=== PATIENT | female | born 1950 | race Caucasian/White ===

== ENCOUNTER → 2019-03-06 09:35 | Outpatient (CLI) | payer MEDICARE, OTHER, SELFPAY ==
--- NOTE | 2019-03-06 | DI.MRI.S_ITS ---
PROCEDURE: MR KNEE RT WO CON INDICATIONS: Unspecified internal derangement of right knee TECHNIQUE: Noncontrast sagittal PD fast spin echo and T2 fast spin echo with fat saturation, sagittal 3-D FLASH with fat saturation; coronal T1 spin echo and PD fast spin echo with fat saturation, and axial PD fast spin echo with fat saturation through the knee. COMPARISON: [facility] [place], CR, XR KNEE ARTHRITIC SERIES RT, 02/17/2019, 15:56. FINDINGS: Image quality: Excellent. Menisci: There is medial extrusion of the medial meniscus. There is fragmentation of the medial meniscal body and posterior horn, indicating complex tearing. Lateral meniscus demonstrates a discoid configuration, and is intact. Cruciate ligaments: The anterior and posterior cruciate ligaments appear intact. Medial structures: The medial collateral ligament appears intact. Visualized portions of the pes anserinus tendons appear normal. No abnormal bursal fluid. Lateral structures: The lateral collateral ligament demonstrates mild T2 signal elevation at its femoral origin. The long and short heads of the biceps femoris tendon appear intact. The popliteus tendon appears normal. There is moderate T2 signal elevation within the popliteus muscle. Iliotibial band appears normal. Anterior structures: The quadriceps and patellar tendons appear intact. Patellar alignment is normal. No femoral trochlear dysplasia or ventral trochlear prominence. No edema in the infrapatellar fat pad. Bones and cartilage: No bone marrow contusions or fractures. Moderate tricompartmental periarticular osteophyte formation. Moderate subchondral ill-defined T2 signal intensity within the weightbearing aspects of the medial femoral condyle and medial tibial plateau, new since the prior examination. Severe diffuse articular cartilage loss overlies the weightbearing aspects of the medial femoral condyle and medial tibial plateau. Mild diffuse articular cartilage loss overlies the medial and lateral patellar facets. Joint space: There is a moderate knee joint effusion. No Torres's cyst. Normal appearing synovial plicae are incidentally noted. IMPRESSION: 1. Medial extrusion and complex tear of the medial meniscus. 2. Degenerative marrow edema versus contusion within the medial femoral condyle and medial tibial plateau. 3. Tricompartmental osteoarthritis with associated articular cartilage loss. 4. Popliteus strain. 5. Knee joint effusion. 6. Partial-thickness tearing of the lateral collateral ligament. Dictated by: Dayo Munoz M.D. on 03/06/2019 at 9:55 Approved by: Dayo Munoz M.D. on 03/06/2019 at 10:01
== END ==
PROVIDERS: PCP Family Medicine Geriatric Medicine; Visit Provider Orthopaedic Surgery
DX: S83.231A Complex tear of medial meniscus, current injury, right knee, initial encounter (principal); M17.11 Unilateral primary osteoarthritis, right knee; M25.461 Effusion, right knee; S83.421A Sprain of lateral collateral ligament of right knee, initial encounter; S83.8X1A Sprain of other specified parts of right knee, initial encounter
CPT/HCPCS: 73721

== ENCOUNTER 2019-05-01 14:02 | Observation (INO) | payer MEDICARE, SELFPAY ==
[2019-04-16 08:46] VITALS: BMI 27.4
[2019-04-30] VITALS (15 sets, daily range): BP systolic 99–158; BP diastolic 55–85; PULSE 54–91; RESP 10–98; TEMP 35.8–37.1; O2SAT 95–100; BMI 27.4
--- NOTE | 2019-04-30 09:15 | DI.RAD.S_ITS ---
PROCEDURE: XR KNEE RT 1TO2V INDICATIONS: Right total knee arthroplasty TECHNIQUE: 2 view(s) of the knee acquired. COMPARISON: [facility], , KNEE 1-2 VIEWS RIGHT, 11/21/2010, 12:43. FINDINGS: Bones: Patient is status post knee joint arthroplasty. Hardware components are in expected positions. Visualized bony structures are intact. Soft tissues: Overlying postoperative changes are noted. IMPRESSION: Status post interval right total knee arthroplasty without acute hardware complication. Dictated by: Oni Nichols M.D. on 04/30/2019 at 13:19 Approved by: Oni Nichols M.D. on 04/30/2019 at 13:20
--- NOTE | 2019-04-30 09:46 | PM.PREOP ---
Pre-operative Note Interval Note History & Physical reviewed/Exam performed by Physician: Yes Changes to H&P: No
--- NOTE | 2019-04-30 09:47 | PM.OP.1 ---
Operative Date/Time/Diagnoses Date of procedure: 04/30/19 Time of procedure: 12:38 Pre-op diagnosis: Right knee osteoarthritis Post-op diagnosis: same Procedure & Clinicians Procedure: Right total knee arthroplasty Same procedure as scheduled: Yes Indications: The patient presents today for total knee arthroplasty after failure of conservative treatment. The nature of the procedure including the risks and benefits, alternatives, postoperative course and expected outcome were discussed and all questions answered. Consent was obtained. Operative site confirmed and marked. Surgeon: Aly Cortez Pear Picker: Erik Barry Anesthesia Type: Spinal, Peripheral nerve block and Local Operative Notes Findings: Osteoarthritis primarily affecting the medial compartment. Closure Type: primary Specimen(s): none sent Prosthetic devices, grafts, tissues, transplants, or devices: Hel[employer] Nephew Sadaney BCS: 6 femoral component, 3 tibial component, 10 mm BCS polyethylene tray and 29 x 7.5 mm round patella Applied: implant(s) Estimated Blood Loss (mL): 20 Blood products transfused: none Tourniquet time (min): 57 Procedure in detail: The patient was taken to the operative suite and placed under spinal anesthesia with an adductor nerve block. The patient was given prophylactic antibiotics prior to surgery. The patient was also given tranexamic acid, 1 g, just prior to surgery for postoperative hemostasis. The lateral knee was prepped and the joint injected with 20 mL of 1% Lidocaine with epinephrine. The knee was then prepped and draped in usual sterile fashion. The leg was exsanguinated with an Esmarch dressing and the tourniquet raised to 250 torr. A 15 cm anterior incision was made. Next a medial trivector arthrotomy was made. The extensor mechanism was marked to ensure accurate repair. Initial exposing dissection was carried out medially and laterally. The knee was then extended and the patellar thickness was measured and a cut made removing approximately 9 mm of bone. The patella was then sized and drilled. Some excess lateral bone was excised and the patellofemoral ligament released. The knee was then flexed and the intramedullary femoral guide irma placed. The distal femoral cut was made in 6 ? of valgus at the + 0 position. The femoral size was measured and the appropriate cutting block was then placed and the anterior, posterior and chamfer cuts made. The intramedullary tibial irma was then placed with the proximal cutting guide. The guide was set to remove approximately 10 mm from the less affected lateral side. The proximal tibial cut was then made with an oscillating saw. All meniscus and bony debris was then removed. Flexion extension gaps were checked. No specific balancing was required other than routine removal of osteophytes. The soft tissues were then injected with a combination of 20 mL of half percent Marcaine with epinephrine and 20 mL of Exparel. The trial components were then placed. The knee went into full extension and flexion beyond 120?. There was excellent medial- lateral balance throughout motion. Patellar tracking was excellent. The trial components were removed and the knee was cleansed with Pulsavac irrigation and dried. The final components were cemented in with high viscosity vacuum mixed bone cement with antibiotics. The knee was held in extension and the patellar clamp until the cement had adequately cured. The knee was irrigated and inspected for any further debris. The knee was then irrigated with dilute Betadine solution. The extensor mechanism was closed with 5 interrupted #1 Vicryl sutures in 90 degrees of flexion. The joint was then injected with a combination of 1 g of tranexamic acid and 20 mL of quarter percent Marcaine with epinephrine. The subcutaneous tissue was closed with 2-0 Vicryl. The skin was closed with arabella and surgical adhesive. An Aquacell dressing and Steven wrap were then applied. The patient tolerated the procedure well and was returned to recovery room in good condition. Complications: none Condition: stable Disposition: PACU [facility]
[2019-04-30] MEDS: LACTATED RINGERS 1,000 ML 42 ML IV ×2 (10:03→12:02)
[2019-04-30] MEDS: PREGABALIN 75 MG CAPSULE PO (10:25)
[2019-04-30] MEDS: ACETAMINOPHEN 325 MG TABLET 975 MG PO ×3 (10:25→22:36)
[2019-04-30] MEDS: CELECOXIB 200 MG CAPSULE PO (10:26)
[2019-04-30] MEDS: MIDAZOLAM 2 MG/2 ML VIAL IV (11:00)
[2019-04-30] MEDS: CEFAZOLIN 2 GM/100 ML FROZ.PIGGY IV ×2 (11:10→18:33)
--- NOTE | 2019-04-30 11:11 | SUR.PREOP ---
Block start time [1102] . Monitoring initiated and maintained throughout procedure. Oxygen and medications given per anesthesiologist instructions. Patient remained stable throughout procedure, no adverse reactions noted. Block end time [1107].
[2019-04-30] MEDS: fentaNYL 100 MCG/2 ML INJ 50 MCG IV (11:14)
[2019-04-30] MEDS: LIDOCAINE 1% W/EPI INJ 20 ML INJ (11:25)
[2019-04-30] MEDS: TRANEXAMIC ACID 1,000 MG VIAL 1000 MG INJ ×2 (11:27→11:55)
--- NOTE | 2019-04-30 11:44 | SUR.OPER ---
Supine on padded OR bed. Pillow under head, arms secured on padded armboards <90 degree abduction. Safety belt across torso. Non-operative leg secured with tape over blanket over lower leg. Operative leg secured in DeMayo/Zach positioner. Foam padded brace at thigh of operative leg.
[2019-04-30] MEDS: BUPIVACAINE 0.25% W/ EPI 30 ML VIAL 60 ML INJ (11:49)
[2019-04-30] MEDS: BUPIVACAINE LIPOSOME 266 MG/20 ML VIAL INJ (11:50)
[2019-04-30] MEDS: BUPIVACAINE 0.25% W/ EPI (PF) 20 ML, TRANEXAMIC ACID 1,000 MG, SODIUM CHLORIDE 0.9% 10 ML INJ (11:52)
[2019-04-30] MEDS: SODIUM CHLORIDE IRRIG SOLUTION 250 ML, POVIDONE-IODINE SPONGE STICKS 1 APPLIC IRR (12:26)
[2019-04-30] MEDS: LACTATED RINGERS 1,000 ML 125 ML IV (14:31)
--- NOTE | 2019-04-30 15:58 | PC.NURSE ---
Pt brought to the AC floor at approx. 1345. She is A & O x4 and denies pain, nausea and vomiting. She has been oriented to the room and provided water and coffee. Surgical site dressing to right knee is CDI.
--- NOTE | 2019-04-30 18:24 | PC.NURSE ---
Pt unable to void. pt felt discomfort on her bladder. bladder scan 540cc. in and out cath per protocol, she had 900cc out.
[2019-04-30] MEDS: OXYCODONE IR 5 MG TABLET PO (19:19)
[2019-04-30] MEDS: ONDANSETRON 4 MG ODT PO (20:49)
[2019-04-30] MEDS: ASPIRIN EC 81 MG TABLET PO (22:36)
[2019-05-01] VITALS (7 sets, daily range): BP systolic 129–178; BP diastolic 65–86; PULSE 70–76; RESP 16–18; TEMP 36.4–37.1; O2SAT 92–97
[2019-05-01] MEDS: LACTATED RINGERS 1,000 ML 125 ML IV ×2 (00:04→08:15)
[2019-05-01] MEDS: OXYCODONE IR 5 MG TABLET PO (00:20)
[2019-05-01] MEDS: CEFAZOLIN 2 GM/100 ML FROZ.PIGGY IV (02:36)
--- NOTE | 2019-05-01 03:42 | PC.NURSE ---
Pt. vomited large amt. of chunky food all over the side rails and on the floor. Pt. expressed feeling much better after vomited. Asked if she wants something for nausea but declined states felt better. Assisted pt. to transfer from bed to chair with 2 assist using a walker. Pt. expressed pain to her right knee, asked if she wants something for pain but declined stating she will wait and toughen it up for now. Asked instead for saltine crackers and hot chamomile tea to settle her stomach. Will provide ice packs for now.Pt. sitting in recliner for now until we get the bed made and floor cleaned.
[2019-05-01] MEDS: HYDROMORPHONE 0.5 MG INJ IV ×2 (04:06→08:14)
[2019-05-01] MEDS: ONDANSETRON 4 MG/2 ML INJ IV (07:03)
[2019-05-01 07:53] LABS: Hemoglobin 11.3 g/dL (12.0-16.0)
[2019-05-01] MEDS: ONDANSETRON 4 MG ODT PO (08:02)
--- NOTE | 2019-05-01 09:18 | PM.PNPO.1 ---
Subjective Date Patient Seen: 05/01/19 Time Patient Seen: 09:18 Interval history: Patient's pain has been moderate to severe. Patient was nauseous this morning and throughout once. Denies fever chills. She has not been up with physical therapy. Exam Vital Signs (past 8 hours): - 05/01/19 03:58 05/01/19 07:50 Temperature 98.0 F 97.5 F L Pulse Rate 70 73 Respiratory Rate 18 16 Blood Pressure 129/65 136/74 Pulse Oximetry 97 93 Fraction of Inspired Oxygen 21 Oxygen Delivery Method Room Air Oxygen Flow Rate 0 Narrative Exam Narrative: 68-year-old female resting comfortably in bed in no apparent distress. Right knee dressing is clean, dry and intact. Sensation is grossly intact right lower extremity. Motor functions intact distally. Right leg is warm and dry. Objective Labs Result Diagrams: 05/01/19 07:35 Labs: Laboratory Results - last 24 hr 05/01/19 07:35 Hgb 11.3 L Hct 34.0 L Assessment & Plan Post-op Postoperative Procedures Operation Date: 04/30/19 11:15 Actual Procedures Side Surgeon p Total Knee Arthroplasty Right Aly Cortez MD Postop day 1 status post right total knee arthroplasty. Work on pain control and nausea. Mobilize with physical therapy. Possible discharge home tomorrow. Quality VTE Deep Vein Thrombosis/Pulmonary Embolism Present on Admission: No
--- NOTE | 2019-05-01 09:20 | PT.IIE ---
Current Diagnoses Bilateral primary osteoarthritis of knee (04/30/19) Unspecified internal derangement of right knee (04/30/19) Surgery Performed Operation Date: 04/30/19 11:15 Actual Procedures p Total Knee Arthroplasty(Right) - Aly Cortez MD Surgical History (Last Updated 04/16/19 @ 09:16 by Loretta Mcpherson RN) Hx of arthroscopy of left knee (Acute ~10/2017) Hx of bilateral cataract extraction (Acute) Hx of tonsillectomy (Acute) Medical History (Last Updated 04/16/19 @ 09:16 by Loretta Mcpherson RN) Arthritis (Acute) Hx of vaginal delivery (Acute) Osteoarthritis (Acute) Thin skin (Acute) Physical Therapy Inpatient Evaluation/Re-Eval M1 PT/OT-IP Prior Functional Status Start: 04/30/19 16:54 Freq: NEEDED Status: Active Protocol: Document 05/01/19 09:20 AB (Rec: 05/01/19 13:33 AB [id number]) Medical Review Prior Functional Status Medical History Reviewed Yes Communication able to make needs known Mobility and Gait pt stated that she is independent with all mobilities and ambulation without AD indoors but occasionally uses a SPC; uses SPC for outdoor mobility; also stated that she has a R knee hinged brace that she has been using since February 2019 Social History Household Members spouse Living Arrangements House Number of Floors (Floors) Two Floors Number of Stairs To Enter/Railing? has a ramp to enter has 5 steps with bilateral rails to get to bedroom level Home Environment Standard Height Toilet Walk in Shower Built-In Shower Seat Home Equipment Front Wheel Walker Straight Cane Bedside Commode Hand Held Shower Grab Bars In Shower Additional Social History Comment pt's spouse works and will be going back to work on sun/ and pt will be by herself after that. M2 PT-IP Current Condition Start: 04/30/19 16:54 Freq: NEEDED Status: Active Protocol: Document 05/01/19 09:20 AB (Rec: 05/01/19 13:33 AB [id number]) Physical Therapy Current Condition Current Condition Evaluation Date 05/01/19 Treatment Diagnosis s/p R TKA; difficulty in walking Onset Date 04/30/19 Weight Bearing Status Weight Bearing Status Weight Bear as Tolerated M3 PT-IP Subjective Start: 04/30/19 16:54 Freq: NEEDED Status: Active Protocol: Document 05/01/19 09:20 AB (Rec: 05/01/19 13:33 AB [id number]) Subjective Physical Therapy Visit Type Type Initial Evaluation Visit Start Time 09:20 Visit Stop Time 10:00 Total Visit Minutes 40 Number of CPAS Visits 0 Physical Therapy Visit Comments Patient Comments pt agreeable to do PT Therapy Pain Assessment Pain When Pain Assessed At Rest Pain Present Pain Present Pain Reported Location Right Knee Intensity 5 Scale Used Numeric (1 - 10) Pain Management Techniques Apply Cold Re-positioning Timing of Activity with Medications M4 PT-IP Mobility and Gait Start: 04/30/19 16:54 Freq: NEEDED Status: Active Protocol: Document 05/01/19 09:20 AB (Rec: 05/01/19 13:33 AB [id number]) PT-Bed Mobility Assessment Supine to Sit Supine to Sit Standby Assistance Sit to Supine Sit to Supine Moderate Assistance Scooting Scooting to Edge of Bed Minimal Assistance PT-Transfer Assessment Sit to and From Stand Sit to and from Stand Moderate Assistance 1 Person Assistance Use of Upper Extremities Equipment Transfer Assistive Device Gait Belt Front Wheeled Walker Orthotic/Prosthetic Devices or Brace: No Transfers Transfer Destination Toilet Bedside Commode Transfer Technique pt ambulated using FWW Transfer Ability Level of Assist Moderate Assistance Use of Upper Extremities Comments Mobility Comments pt completed supine to sit SBA . pt was able to sit on EOB SBA. pt ambulated ~ 5 ft before sitting on chair using FWW mod A and cues for quad activation. upon sitting, pt wanted to use the toilet. positioned bedside commode next to pt and pt completed stand step pivot using FWW mod A and cues. pt required mod A to maintain standing using FWW for support and also assisted with brief management . pt completed sit to stand from the bedside commode mod A and cues and transferred to the chair using FWW mod A and cues. pt refused to stay up on the chair and want to go back to bed. pt completed stand step transfer using FWW mod A and cues. pt completed sit to supine mod A for LE elevation to the bed. positioned pt on the bed. call light and table placed within reach. Gait Assessment Gait Gait Assistance Required: Moderate Assistance Distance (Feet) 5 Able to Maintain Weight Bearing Status Yes During Gait Assistive Devices Assistive Device Gait Belt Front Wheeled Walker Orthotic/Prosthetic Devices or Brace: No Gait Deviations General Gait Pattern Antalgic Decreased Stride Length Decreased Feet Clearance Step-to Gait Factors Limiting Gait Function Factors Limiting Gait Function Decreased Activity Tolerance Decreased Sensation Decreased Strength Limited Range of Motion Pain Poor Balance Poor Safety Awareness Comments Gait Comments pt presents with unsteady antalgic gait and requires cues for quad activation and assistance to stabilize R knee . PT-Balance Assessment Sitting Balance and Reactions Static Sitting Balance Ability Good Dynamic Sitting Balance Ability Good Standing Balance and Reactions Static Standing Balance Ability Fair Dynamic Standing Balance Ability Poor Device Used FWW M5 PT-IP Objective Assessments Start: 04/30/19 16:54 Freq: NEEDED Status: Active Protocol: Document 05/01/19 09:20 AB (Rec: 05/01/19 13:33 AB [id number]) Orientation Orientation/Cognition Level of Alertness Alert Orientation Name Place Situation Language Function Ability Hard of Hearing Safety Awareness Decreased Safety Awareness Memory Description Short Term Impaired Gross Range of Motion Upper Extremity ROM Assessment Within Functional Limits Lower Extremity ROM Assessment Right Impaired Impairments R knee flexion ~ 60 deg R knee extension: ~ 30 deg lacking to 0 Strength Lower Extremity Strength Assessment Right Impaired Hip 3+/5 Knee 3-/5 Ankle 2-/5 Comments Strength Comments pt unable to complete R ankle DF; stated that there is still some numbness Coordination Assessment Gross Coordination Gross Coordination WNL Sensation Assessment Sensation Gross Sensation Right LE Impaired Sensation Description Numbness Comments Sensation Comments c/o slight R foot numbness but able to decipher location of light touch Muscle Tone Muscle Tone WNL Yes M6 PT-IP Treatment Start: 04/30/19 16:54 Freq: NEEDED Status: Active Protocol: Document 05/01/19 09:20 AB (Rec: 05/01/19 13:33 AB [id number]) Physical Therapy Treatment Exercises Exercises Quad Sets Heel Slides Education Education Provided Precautions Weight Bearing Status Post-Op Packet Safety M7 PT-IP Assessment and Plan Start: 04/30/19 16:54 Freq: NEEDED Status: Active Protocol: Document 05/01/19 09:20 AB (Rec: 05/01/19 13:33 AB [id number]) PT Summary Assessment and Plan Potential Rehabilitation Potential Good Status of Condition at Evaluation Evolving Summary Impairments Pain ROM Strength Balance Coordination Sensation Tone Cognition Bed Mobility Transfers Gait Activity Tolerance Assessment Summary pt requiring mod A with mobility and requires assist to stabilize R knee. pt is not able to tolerate much activity with c/o R knee pain. d/c plan depending on progress and if spouse will be able to assist pt at home. pt may require SNF rehab at this time. Goals Bed Mobility Goal Standby Assistance Transfer Goal Standby Assistance Front Wheeled Walker Gait Goal Standby Assistance Front Wheel Walker Gait Distance 150 Other Goals up/down 5 steps B rails SBA Days to Meet Goals 5 Frequency of Treatment Frequency Of Treatment Twice a Day Treatment Plan Physical Therapy Treatment Plan Bed Mobility Training Transfer Training Gait Training Therapeutic Exercise Balance Retraining Post Op Education Discharge Planning Hot or Cold Pack Neuromuscular Re-ed Coordination Retraining Manual Therapy Other Recommendations and Next Treatment ambulation, caregiver training Focus . stair climbing Recommendations To Nursing Amount of Assist Needed 1 Person Assist Discharge Recommendations PT Discharge Recommendations Home with Assistance SNF Rehab Outpatient PT Other Discharge Recommendations depending on progress: SNF vs home with assist and outpt PT
[2019-05-01] MEDS: MAG HYDROX/ALUM/SIMETH 30 ML UDC PO (11:33)
--- NOTE | 2019-05-01 13:16 | CM.IDA ---
Initial DCP assessment Note: Pt is a 68 yo female, resident of [place]. Pt under obs POD#1 from Right knee surgery w/ Dr Cortez. PCP: [facility] Mariee Payer: Medicare Reviewed chart. Attempted to meet w/pt for initial assessment, although pt not feeling well after episodes of N/V this morning. Ortho PA expecting pt will be ready for DC home tomorrow. Pt has planned to return [place] to [place] w/friends and family to assist, PT pending today. No PT note yet, recommendation pending initial PT eval. Following closely for coordination of safe DCP, likely return home as expected. DAVIE Sullivan Discharge Planning/Care Management CM Discharge Assessment Start: 05/01/19 13:13 Freq: Status: Active Protocol: Document 05/01/19 13:14 WILI (Rec: 05/01/19 13:16 WILI [id number]) Discharge Planning Assessment Assigned Tool Grinder Operator Surface DAVIE Iraheta DPOA/Assigned Designee Name Camron Iglesias, spouse Contact Information [phone] Advance Directives? No Advance Directives on File No History Provided By Patient Medical Record Prior Living Arrangements House Household Members spouse Type of transporation used prior to Drives own vehicle admit Independent with ADL's Yes Is patient alert and oriented? Yes Barriers to Discharge No Discharge Plan Home Transportation Arrangement Family, [place] Referrals Initiated None needed Whiteboard Updated in Patient Room with Yes name and ext. # of Tool Grinder Operator Surface Review Status In Process
[2019-05-01] MEDS: ACETAMINOPHEN 325 MG TABLET 975 MG PO ×2 (13:19→18:26)
--- NOTE | 2019-05-01 14:52 | PT.IPTN ---
Current Diagnoses Bilateral primary osteoarthritis of knee (04/30/19) Unspecified internal derangement of right knee (04/30/19) Surgery Performed Operation Date: 04/30/19 11:15 Actual Procedures p Total Knee Arthroplasty(Right) - Aly Cortez MD Physical Therapy Treatment Note M2 PT-IP Current Condition Start: 04/30/19 16:54 Freq: NEEDED Status: Active Protocol: Document 05/01/19 09:20 AB (Rec: 05/01/19 13:33 AB [id number]) Physical Therapy Current Condition Current Condition Evaluation Date 05/01/19 Treatment Diagnosis s/p R TKA; difficulty in walking Onset Date 04/30/19 Weight Bearing Status Weight Bearing Status Weight Bear as Tolerated M3 PT-IP Subjective Start: 04/30/19 16:54 Freq: NEEDED Status: Active Protocol: Document 05/01/19 14:52 AB (Rec: 05/01/19 16:19 AB [id number]) Subjective Physical Therapy Visit Type Type Treatment Note Visit Start Time 14:52 Visit Stop Time 15:31 Total Visit Minutes 39 Number of RECYCLING SPECIALIST Visits 0 Physical Therapy Visit Comments Patient Comments pt agreeable to do PT. spouse present Therapy Pain Assessment Pain When Pain Assessed At Rest Pain Present Pain Present Pain Reported Location Right Knee Intensity 4 Scale Used Numeric (1 - 10) Pain Management Techniques Apply Cold Re-positioning Timing of Activity with Medications M4 PT-IP Mobility and Gait Start: 04/30/19 16:54 Freq: NEEDED Status: Active Protocol: Document 05/01/19 14:52 AB (Rec: 05/01/19 16:19 AB [id number]) PT-Bed Mobility Assessment Supine to Sit Supine to Sit Minimal Assistance Sit to Supine Sit to Supine 1 Person Assistance Scooting Scooting to Edge of Bed Standby Assistance PT-Transfer Assessment Sit to and From Stand Sit to and from Stand Minimal Assistance 1 Person Assistance Use of Upper Extremities Equipment Transfer Assistive Device Gait Belt Front Wheeled Walker Orthotic/Prosthetic Devices or Brace: No Comments Mobility Comments caregiver training conducted. educated spouse on how to use safety belt and how to assist pt. pt's spouse was able to assist pt with supine to sit. pt completed sit to stand an spouse assisted. pt agreed to ambulate and completed ~ 40 ft using FWW min A and spouse was able to also assist pt safely. pt requires cues to activate R quads. pt ambulated towards the bed and rested. pt completed sit to stand from the bed min A and cues. standing balance/ tolerance activity conducted using FWW. pt was able to complete one leg stance on RLE with use of FWW for support CGA and was able to hold for ~ 5 sec. pt completed again with holding on to only L side of the FWW and able to hold again for ~ 5 sed. pt refused to sit up on the chair and wants to go back to bed. pt completed sit to supine. showed spouse on how to assist pt and spouse was able to complete. Gait Assessment Gait Gait Assistance Required: Minimum Assistance Distance (Feet) 40 Able to Maintain Weight Bearing Status Yes During Gait Assistive Devices Assistive Device Gait Belt Front Wheeled Walker Orthotic/Prosthetic Devices or Brace: No Gait Deviations General Gait Pattern Antalgic Decreased Stride Length Decreased Feet Clearance Step-to Gait Factors Limiting Gait Function Factors Limiting Gait Function Decreased Activity Tolerance Decreased Strength Pain Poor Balance Poor Safety Awareness Comments Gait Comments pt requiring min A using FWW for ambulation ~ 40 ft. spouse was able to assist pt. pt requires cues to increase RLE elevation. pt continues to have R foot drop. M5 PT-IP Objective Assessments Start: 04/30/19 16:54 Freq: NEEDED Status: Active Protocol: Document 05/01/19 09:20 AB (Rec: 05/01/19 13:33 AB [id number]) Orientation Orientation/Cognition Level of Alertness Alert Orientation Name Place Situation Language Function Ability Hard of Hearing Safety Awareness Decreased Safety Awareness Memory Description Short Term Impaired Gross Range of Motion Upper Extremity ROM Assessment Within Functional Limits Lower Extremity ROM Assessment Right Impaired Impairments R knee flexion ~ 60 deg R knee extension: ~ 30 deg lacking to 0 Strength Lower Extremity Strength Assessment Right Impaired Hip 3+/5 Knee 3-/5 Ankle 2-/5 Comments Strength Comments pt unable to complete R ankle DF; stated that there is still some numbness Coordination Assessment Gross Coordination Gross Coordination WNL Sensation Assessment Sensation Gross Sensation Right LE Impaired Sensation Description Numbness Comments Sensation Comments c/o slight R foot numbness but able to decipher location of light touch Muscle Tone Muscle Tone WNL Yes M6 PT-IP Treatment Start: 04/30/19 16:54 Freq: NEEDED Status: Active Protocol: Document 05/01/19 14:52 AB (Rec: 05/01/19 16:19 AB [id number]) Physical Therapy Treatment Exercises Exercises Heel Slides Education Education Provided Safety M7 PT-IP Assessment and Plan Start: 04/30/19 16:54 Freq: NEEDED Status: Active Protocol: Document 05/01/19 14:52 AB (Rec: 05/01/19 16:19 AB [id number]) PT Summary Assessment and Plan Potential Rehabilitation Potential Good Summary Impairments Pain ROM Strength Balance Sensation Bed Mobility Transfers Gait Activity Tolerance Progress Towards Goals Slow Progress due to Pain Slow Progress due to Activity Tolerance Assessment Summary caregiver training initiated and further training will be conducted tomorrow. pt wants to go home tomorrow but will continue to work on goals for safe d/c. pt has ~ 5 steps to get into the bedroom level with B rails and is not appropriate for stair training today. will attempt tomorrow . Goals Bed Mobility Goal Standby Assistance Transfer Goal Standby Assistance Front Wheeled Walker Gait Goal Standby Assistance Front Wheel Walker Gait Distance 150 Other Goals up/down 5 steps B rails SBA Days to Meet Goals 5 Frequency of Treatment Frequency Of Treatment Twice a Day Treatment Plan Physical Therapy Treatment Plan Bed Mobility Training Transfer Training Gait Training Therapeutic Exercise Balance Retraining Post Op Education Discharge Planning Hot or Cold Pack Neuromuscular Re-ed Coordination Retraining Manual Therapy Other Recommendations and Next Treatment ambulation, caregiver training Focus . stair climbing Recommendations To Nursing Amount of Assist Needed 1 Person Assist Discharge Recommendations PT Discharge Recommendations Home with Assistance Outpatient PT
[2019-05-01] MEDS: ACETAMINOPHEN 325 MG TABLET 650 MG PO (23:18)
--- NOTE | 2019-05-01 23:52 | PC.NURSE ---
Addendum entered by Elizabeth Rajput R.N. 05/02/19 04:02: Patient up to BSC earlier and nearly lost her balance during turning to sit down on commode. Reinforced importance of calling for assistance and patient verbalizes understanding. At that time stated pain was 5/10 but declined pain med. Now states pain is 7/10 and requesting Tylenol but too early to give Tylenol so decided to take Oxycodone even though she has hx of nausea with narcotics. Did offer Zofran ODT along with Oxycodone as prevention but declines. Original Note: Patient is alert and oriented with very flat affect. Breath sounds CTA with RA sat of 93%. HRR with elevated BP of 151/79 consistent with previous readings. Denies nausea. BT present and has passed some flatus. Denies dysuria, frequency or urgency. Is getting up with walker and SBA to BSC; needs help to get leg in/out of bed. Dressing to right knee is CDI. At shift change was complaining of 6/10 pain and was medicated with Tylenol; declines offer of ice pack. SCD's on at shift change and now refusing them stating they don't allow her to sleep; reminded of need for DVT prevention but still refuses so reminded to ankle wave. CMS is intact. Fall risk score is moderate; bed alarm is activated. Patient reminded to call for assistance when getting out of bed as RN found patient getting up by herself upon entering room to do assessment. Spouse roomming in.
[2019-05-02 03:48] VITALS: BMI 27.4
[2019-05-02] MEDS: OXYCODONE IR 5 MG TABLET PO (04:00)
[2019-05-02 06:13] VITALS: BP 143/74; PULSE 79; RESP 16; TEMP 36.6; O2SAT 92
[2019-05-02 07:30] VITALS: BP 152/59; PULSE 88; RESP 16; TEMP 36.9; O2SAT 96
[2019-05-02] MEDS: ASPIRIN EC 81 MG TABLET PO (08:45)
[2019-05-02] MEDS: MELOXICAM 7.5 MG TABLET 15 MG PO (08:46)
--- NOTE | 2019-05-02 09:04 | PM.DS.1 ---
History of Present Illness Date Patient Seen: 05/02/19 Time Patient Seen: 09:05 Chief complaint: [id number] Right TKA Narrative: Hospital day 3, postop day 2 following right total knee arthroplasty by Dr. Cortez. Patient stable at this time. She has progressed with physical therapy. Patient feels like she is ready to go home. She does have physical therapy scheduled at [facility]. She is thus with path patient and has prescription at home for oxycodone. Discharge Providers Date of admission: 04/30/19 09:34 Discharge Date: 05/02/19 Primary care physician: Bismark Mariee MD Consults: 04/30/19 14:12 Consult to Discharge Planning Routine Comment: Consult to Physical Therapy Evaluate & Treat Comment: Physician Instructions: postop TKA protocol Consult to Respiratory Therapy Evaluate & Treat Comment: Physician Instructions: Evaluate and treat Discharge provider: Nile Barrientos PA-C Summary Discharge Diagnosis: Status post right total knee arthroplasty Hospital Course: Patient brought to hospital on 04/30/2019 for above-noted surgery. She remained stable postoperatively. Dr. Terrell for improved with physical therapy. Ready for discharge home on postop day 2. Status at Discharge Cognitive/behavioral status at discharge: oriented Functional status at discharge: uses cane/walker Overall status at discharge: patient is progressing back to baseline Time Spent with Patient Less than 30 minutes Exam Vital Signs (past 8 hours): - 05/02/19 06:13 05/02/19 07:30 Temperature 98 F 98.5 F Pulse Rate 79 88 Respiratory Rate 16 16 Blood Pressure 143/74 H 152/59 H Pulse Oximetry 92 96 Fraction of Inspired Oxygen 21 Oxygen Delivery Method Room Air Oxygen Flow Rate 0 Narrative Exam Narrative: Alert, oriented no acute distress sitting in chair. Legs. Steven wrap an Aquacel dressing to right knee are dry without drainage or inflammation. Mild swelling of knee to lower leg. Good pulses distally. No calf tenderness. Objective Labs Result Diagrams: 05/01/19 07:35 Discharge Plan Discharge Plan Patient Disposition: Home Discharge comment: Discharge to home today after cleared by PT. She is a [facility] patient and has prescription at home for oxycodone. Will give her prescription for meloxicam 15 mg. PT scheduled at [facility]. Take aspirin 81 mg 1 b.i.d. times 30 days postop. Discharge Med Rec/Prescriptions Prescriptions: New acetaminophen 325 mg Tablet 650 mg PO Q6H PRN (Reason: Pain, Moderate (4-6)) Qty: 30 RF: 0 aspirin 81 mg Tablet,Delayed Release (Dr/Ec) 81 mg PO BID Qty: 60 RF: 0 meloxicam 15 mg tablet 15 mg PO DAILY Qty: 20 RF: 0 Continued acetaminophen [Tylenol Extra Strength] 500 mg Tablet 1,000 mg PO Q5H PRN (Reason: Pain) RF: 0 doxylamine succinate 25 mg Tablet 25 mg PO BEDTIME RF: 0 Discontinued aspirin 325 mg Tablet 325 mg PO DAILY PRN (Reason: Pain) RF: 0 Follow up/Referrals: Bismark Mariee MD [Primary Care Provider] - Aly Cortez MD [Physician] - Provider Discharge Instructions Diet: Diet as Tolerated Activity: Ambulate as tolerated. Do range of motion of right knee as much as possible. Use walker as needed. Elevate the leg for swelling. Skin/Wound/Dressing Care Report to your healthcare provider any signs of infection, such as:: chills, fever, night sweats, increased pain, unusual drainage and unusual redness Dressing: Keep Aquacel dressing in place until postop visit. May remove Steven wrap. Visit Report/Discharge Packet Instructions: DI for Knee Replacement, How to Prevent Falls, DI for Postoperative Pain Visit Report Forms: Stroke Signs & Symptoms Discharge Data Primary Care Provider: Bismark Mariee Attending Provider: Aly Cortez Admit Date/Time: 04/30/19 09:34 Quality VTE Deep Vein Thrombosis/Pulmonary Embolism Present on Admission: No
--- NOTE | 2019-05-02 09:08 | PT.IPTN ---
Current Diagnoses Bilateral primary osteoarthritis of knee (05/01/19) Unspecified internal derangement of right knee (05/01/19) Surgery Performed Operation Date: 04/30/19 11:15 Actual Procedures p Total Knee Arthroplasty(Right) - Aly Cortez MD Physical Therapy Treatment Note M2 PT-IP Current Condition Start: 04/30/19 16:54 Freq: NEEDED Status: Discharge Protocol: Document 05/01/19 09:20 AB (Rec: 05/01/19 13:33 AB [id number]) Physical Therapy Current Condition Current Condition Evaluation Date 05/01/19 Treatment Diagnosis s/p R TKA; difficulty in walking Onset Date 04/30/19 Weight Bearing Status Weight Bearing Status Weight Bear as Tolerated M3 PT-IP Subjective Start: 04/30/19 16:54 Freq: NEEDED Status: Discharge Protocol: Document 05/02/19 09:08 AB (Rec: 05/02/19 11:53 AB [id number]) Subjective Physical Therapy Visit Type Type Treatment Note Visit Start Time 09:08 Visit Stop Time 09:32 Total Visit Minutes 24 Number of RESERVATION AGENT Visits 0 Physical Therapy Visit Comments Patient Comments pt agreeable to do PT Therapy Pain Assessment Pain When Pain Assessed At Rest Location Right Knee Intensity 4 Scale Used Numeric (1 - 10) Pain Management Techniques Apply Cold Re-positioning Timing of Activity with Medications M4 PT-IP Mobility and Gait Start: 04/30/19 16:54 Freq: NEEDED Status: Discharge Protocol: Document 05/02/19 09:08 AB (Rec: 05/02/19 11:53 AB [id number]) PT-Transfer Assessment Sit to and From Stand Sit to and from Stand Contact Guard Assistance Equipment Transfer Assistive Device Gait Belt Front Wheeled Walker Orthotic/Prosthetic Devices or Brace: No Gait Assessment Gait Gait Assistance Required: Contact Guard Assist Distance (Feet) 150 Able to Maintain Weight Bearing Status Yes During Gait Assistive Devices Assistive Device Gait Belt Orthotic/Prosthetic Devices or Brace: No Gait Deviations General Gait Pattern Antalgic Decreased Stride Length Decreased Feet Clearance Factors Limiting Gait Function Factors Limiting Gait Function Decreased Activity Tolerance Decreased Strength Pain Poor Balance Comments Gait Comments caregiver training conducted. spouse was able to assist pt with ambulation. pt now able to DF R foot and clear the floor better compared to yesterday Stair Climbing Assessment Evaluation Level of Assist On Stairs Contact Guard Assistance Minimal Assistance Devices Stair Climbing Assistive Devices Right Railing Technique/Endurance Stair Climbing Direction Ascend and Descend Stair Climbing Technique Step to Step Number of Steps Climbed 3 Comments Stair Climbing Comments spouse was able to assist pt safely with stair climbing M5 PT-IP Objective Assessments Start: 04/30/19 16:54 Freq: NEEDED Status: Discharge Protocol: Document 05/01/19 09:20 AB (Rec: 05/01/19 13:33 AB [id number]) Orientation Orientation/Cognition Level of Alertness Alert Orientation Name Place Situation Language Function Ability Hard of Hearing Safety Awareness Decreased Safety Awareness Memory Description Short Term Impaired Gross Range of Motion Upper Extremity ROM Assessment Within Functional Limits Lower Extremity ROM Assessment Right Impaired Impairments R knee flexion ~ 60 deg R knee extension: ~ 30 deg lacking to 0 Strength Lower Extremity Strength Assessment Right Impaired Hip 3+/5 Knee 3-/5 Ankle 2-/5 Comments Strength Comments pt unable to complete R ankle DF; stated that there is still some numbness Coordination Assessment Gross Coordination Gross Coordination WNL Sensation Assessment Sensation Gross Sensation Right LE Impaired Sensation Description Numbness Comments Sensation Comments c/o slight R foot numbness but able to decipher location of light touch Muscle Tone Muscle Tone WNL Yes M6 PT-IP Treatment Start: 04/30/19 16:54 Freq: NEEDED Status: Discharge Protocol: Document 05/02/19 09:08 AB (Rec: 05/02/19 11:53 AB [id number]) Physical Therapy Treatment Exercises Exercises Heel Slides Education Education Provided Safety M7 PT-IP Assessment and Plan Start: 04/30/19 16:54 Freq: NEEDED Status: Discharge Protocol: Document 05/02/19 09:08 AB (Rec: 05/02/19 11:53 AB [id number]) PT Summary Assessment and Plan Potential Rehabilitation Potential Good Summary Impairments Pain ROM Strength Balance Cognition Bed Mobility Transfers Gait Activity Tolerance Progress Towards Goals Progressing Toward Goals Assessment Summary caregiver training completed. pt's spouse was able to assist pt safety with mobility . pt plans to go home today. Goals Bed Mobility Goal Standby Assistance Transfer Goal Standby Assistance Front Wheeled Walker Gait Goal Standby Assistance Front Wheel Walker Gait Distance 150 Other Goals up/down 5 steps B rails SBA Days to Meet Goals 5 Frequency of Treatment Frequency Of Treatment Twice a Day Treatment Plan Physical Therapy Treatment Plan Bed Mobility Training Transfer Training Gait Training Therapeutic Exercise Balance Retraining Post Op Education Discharge Planning Hot or Cold Pack Neuromuscular Re-ed Coordination Retraining Manual Therapy Recommendations To Nursing Amount of Assist Needed 1 Person Assist Discharge Recommendations PT Discharge Recommendations Home with Assistance Outpatient PT
--- NOTE | 2019-05-02 10:24 | PC.NURSE ---
Day Shift- Pt A&OX4, able to make needs known using call light. Pain 4-5/10 aching to right knee. Right knee aquacel dressing CDI with lidia wrap. Instructed to remove lidia wrap at any time and leave off at night. CMS+, PPP, puffy edema to RLE to ankle, non-pitting. Ice pack on/off throughout shift. Discharge summary packet reviewed with pt and her at bedside, no voiced concerns. Prescription for Meloxicam faxed to [facility] per pt request. Pt states has all belongings. 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 Pt's given [email or web address] boarding pass of priority boarding to [facility] for [address].
--- NOTE | 2019-05-02 13:42 | CM.DPNOTE ---
DC Note: Met w/pt to review IMM, reviewed and signed. Pt feels confident about her return home today and has no concerns, spouse to assist. Therapy team has cleared pt for return home, DC order and instructions already completed. WILI
== END 2019-05-02 10:27 | disposition home or self-care (01) ==
LOC: AC 05-02 09:41 → OR 05-02 11:05 → AC 05-02 11:05 → OR 05-02 11:07
PROVIDERS: Admitting Provider Orthopaedic Surgery; PCP Family Medicine Geriatric Medicine; Visit Provider Orthopaedic Surgery
PROC: 0SRC0JZ Replacement of Right Knee Joint with Synthetic Substitute, Open Approach (ICD-10-PCS; CPT 27447; principal; 2019-04-30 11:15)
DX: M17.11 Unilateral primary osteoarthritis, right knee (principal); M23.91 Unspecified internal derangement of right knee; G89.18 Other acute postprocedural pain
CPT/HCPCS: 27447; 36415; 64447; 64450; 73560; 85014; 85018; 94760; 97162; 97530; C1776; G0378; C9290; J0690; J1170; J2250; J2405; J2704; J3010